=== PATIENT | female | born 1990 | race Two or more races ===

== ENCOUNTER 2021-10-22 04:25 | Emergency (ER) | payer SELFPAY ==
[~2021-10-22] VITALS: Ht 152.4 cm; Wt 29.6 kg
[2021-10-22] MEDS ORDERED: ACETAMINOPHEN 500 MG TABLET PO ONE (06:30)
--- NOTE | 2021-10-22 07:29 | PHYS DOC ---
Adult General Chief Complaint Chief Complaint: VAGINAL BLEEDING [facility] HPI The patient is a 31-year-old female, G5, P2, A2 at about 8 weeks estimated gestational age by last menstrual period. She presents for evaluation of vaginal spotting since yesterday in the setting of low midline abdominal and low back discomfort which has been present for a few weeks. Discomfort is not worse than usual today; only new symptom is the vaginal spotting. Patient has only used 1 pad since onset of bleeding. She denies fevers, nausea or vomiting, upper respiratory congestion/rhinorrhea, cough, sore throat, shortness of breath or chest pain of any kind, flank pain, dysuria, hematuria, polyuria or oliguria, unusual vaginal discharge, changes in bowel habits. Vital signs are appropriate here and the patient is in no acute distress. Fluent telephonic Cymraes interpretation used to collect history and complete examination. Review of Systems Review of Systems A 12 point review of systems was completed and was negative except where noted in HPI above. Current Medications Current Medications Current Medications Medications (Trade) Dose Ordered Sig/Arturo Start Time Stop Time Status Last Admin Dose Admin Acetaminophen (Tylenol) 1,000 mg 1X ONCE 10/22/21 06:30 10/22/21 07:20 DC 10/22/21 07:27 1,000 MG Allergies Allergies Allergies Coded Allergies Type Severity Reaction Last Updated Verified No Known Drug Allergies 10/22/21 No Physical Exam Physical Exam Younger female appearing nontoxic and in no acute distress. Head is normocephalic and atraumatic. Neck is supple and nontender. Oropharynx is moist. Lungs are clear to auscultation at all stations. There is a normal S1 and S2 without rubs or gallops and capillary refill is appropriate, less than 2 seconds globally. Abdomen is soft, nontender and nondistended. Skin is warm and dry without cyanosis, clubbing or edema. Psychiatrically, the patient demonstrates appropriate mood and affect and is alert. Current Patient Data Vital Signs Vital Signs Date Time Temp Pulse Resp B/P (MAP) Pulse Ox O2 Delivery O2 Flow Rate FiO2 10/22/21 07:20 78 22 107/56 (73) 97 Room Air 10/22/21 07:08 98.9 98.9 Lab Values Laboratory Tests Test 10/22/21 07:12 10/22/21 07:18 Urine Collection Type Unknown Urine Color Anabella Urine Clarity Clear Urine pH 6.0 (<5.0-8.0) Urine Specific [place] 1.020 (1.000-1.030) Urine Protein Negative mg/dL (NEG-TRACE) Urine Glucose (UA) Negative mg/dL (NEG) Urine Ketones (Stick) Negative mg/dL (NEG) Urine Blood Large (NEG) Urine Nitrite Negative (NEG) Urine Bilirubin Small (NEG) Urine Urobilinogen Dipstick 0.2 mg/dL (0.2 mg/dL) Urine Leukocyte Esterase Small (NEG) Urine RBC >40 /HPF (0-2) Urine WBC 1-4 /HPF (0-4) Urine Squamous Epithelial Cells Few /LPF Urine Bacteria Few /HPF (0-FEW) Urine Mucus Slight /LPF White Blood Count 11.7 x10^3/uL (4.0-11.0) H Red Blood Count 4.40 x10^6/uL (3.50-5.40) Hemoglobin 13.1 g/dL (12.0-15.5) Hematocrit 38.5 % (36.0-47.0) Mean Corpuscular Volume 88 fL (79-100) Mean Corpuscular Hemoglobin 30 pg (25-35) Mean Corpuscular Hemoglobin Concent 34 g/dL (31-37) Red Cell Distribution Width 13.4 % (11.5-14.5) Platelet Count 286 x10^3/uL (140-400) Neutrophils (%) (Auto) 72 % (31-73) Lymphocytes (%) (Auto) 21 % (24-48) L Monocytes (%) (Auto) 6 % (0-9) Eosinophils (%) (Auto) 1 % (0-3) Basophils (%) (Auto) 1 % (0-3) Neutrophils # (Auto) 8.4 x10^3/uL (1.8-7.7) H Lymphocytes # (Auto) 2.4 x10^3/uL (1.0-4.8) Monocytes # (Auto) 0.7 x10^3/uL (0.0-1.1) Eosinophils # (Auto) 0.1 x10^3/uL (0.0-0.7) Basophils # (Auto) 0.1 x10^3/uL (0.0-0.2) Maternal Serum HCG Beta Subunit 5384 mIU/mL (0-5) H Laboratory Tests 10/22/21 07:18 EKG EKG [] Radiology/Procedures Radiology/Procedures OB ultrasound less than 14 weeks to include transabdominal and transvaginal imaging 10/22/2021 CLINICAL HISTORY: First trimester with vaginal bleeding. TECHNIQUE: Using the distended urinary bladder as a sonographic window, a real- time ultrasound examination of the pelvis was performed. Additionally in an attempt to better evaluate the uterus and adnexa, a transvaginal ultrasound study was performed. Multiple images were obtained. 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 An oval-shaped fluid collection is seen within the endometrial canal within the right aspect of the uterine body/fundus which resembles a gestational sac. No yolk sac or embryonic pole is seen to confirm a living IUP. The mean sac diameter is 1.4 cm. This corresponds to an estimated gestational age by ultrasound of 6 weeks 2 days plus or minus a standard deviation of 7 days. The uterus is otherwise within normal limits. Both ovaries are within normal limits in size and echogenicity. The right ovary measures 3.5 x 2.2 x 2.1 cm in size. The left ovary measures 2.4 x 1.4 x 1.3 cm in size. No adnexal mass is seen. No free fluid is noted. IMPRESSION: A fluid collection which resembles a gestational sac is seen within the right aspect of the endometrial canal of the body/fundus of the uterus. No yolk sac or embryonic pole is seen to confirm a living IUP at this time. Cor relation with the patient's serial beta hCG levels is recommended. A follow-up pelvic ultrasound could be useful if clinically warranted. Electronically signed by: William Zacarias MD (10/22/2021 9:13 AM) [id number] DICTATED and SIGNED BY: WILLIAM ZACARIAS MD DATE: 10/22/21 [id number] 0 Course & Med Decision Making Course & Med Decision Making Well-appearing 31-year-old female with reassuring vital signs presenting for scant vaginal bleeding of early . No ultrasound confirmatory of intrauterine yet. Will check studies as noted including a formal obstetric ultrasound and will then reevaluate. Will give some Tylenol for discomfort. 0950: Resting comfortably in no acute distress on serial reassessments. Vital signs remained appropriate here. Labs as noted. Ultrasound results as above. Patient will need at least a repeat quantitative hCG in 48 hours. This has been discussed with her, as have return precautions for significant worsening of bleeding, significant worsening of pain, shortness of breath, lightheadedness or other new concerns. All questions are answered. Dragon Disclaimer Dragon Disclaimer This electronic medical record was generated, in whole or in part, using a voice recognition dictation system. Departure Departure Impression: Primary Impression: Vaginal bleeding affecting early Disposition: HOME / SELF CARE / HOMELESS Condition: STABLE Referrals: GREGORIA FAROOQ MD Patient Instructions: Vaginal Bleeding During , First Trimester Additional Instructions: Follow-up with your cardiac specialist in the office in 48 hours (2 days) for a repeat quantitative hormone test and for reevaluation. Drink plenty of fluids and get plenty of rest. You may take Tylenol as needed for discomfort. Return to the emergency department right away for worsening bleeding (usually defined as bleeding involving 2 or more pads an hour for 3 or more hours in a row), significant worsening of pain, shortness of breath, lightheadedness or for any other new symptoms of concern. WILLIAM NELSON MD Oct 22, 2021 07:29
[2021-10-22 07:37] LABS: BASO # 0.1 x10^3/uL (0.0-0.2); BASO % 1 % (0-3); EOS # 0.1 x10^3/uL (0.0-0.7); EOS % 1 % (0-3); HEMATOCRIT 38.5 % (36.0-47.0); HEMOGLOBIN 13.1 g/dL (12.0-15.5); LYMPH # 2.4 x10^3/uL (1.0-4.8); LYMPH % 21 % (24-48); MEAN CORPUSCULAR HEMOGLOBIN 30 pg (25-35); MEAN CORPUSCULAR HGB CONC 34 g/dL (31-37); MEAN CORPUSCULAR VOLUME 88 fL (79-100); MONO # 0.7 x10^3/uL (0.0-1.1); MONO % 6 % (0-9); NEUT # 8.4 x10^3/uL (1.8-7.7); NEUT % 72 % (31-73); PLATELET COUNT 286 x10^3/uL (140-400); RED CELL DISTRIBUTION WIDTH 13.4 % (11.5-14.5); WHITE BLOOD COUNT 11.7 x10^3/uL (4.0-11.0)
[2021-10-22 07:38] LABS: BILIRUBIN,URINE SMALL (NEG); CLARITY,URINE CLEAR; COLOR,URINE AMBER; NITRITE,URINE NEGATIVE (NEG); PROTEIN,URINE NEGATIVE (NEG-TRACE); UROBILINOGEN,URINE 0.2 mg/dL (0.2 mg/dL)
[2021-10-22 07:56] LABS: BACTERIA,URINE FEW /HPF (0-FEW); RBC,URINE >40 /HPF (0-2)
--- NOTE | 2021-10-22 09:15 | RAD ---
OB ultrasound less than 14 weeks to include transabdominal and transvaginal imaging 10/22/2021 CLINICAL HISTORY: First trimester with vaginal bleeding. TECHNIQUE: Using the distended urinary bladder as a sonographic window, a real-time ultrasound examin ation of the pelvis was performed. Additionally in an attempt to better evaluate the uterus and adnex a, a transvaginal ultrasound study was performed. Multiple images were obtained. 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 An oval-shaped fluid collection is seen within the endometrial ca nal within the right aspect of the uterine body/fundus which resembles a gestational sac. No yolk sac or embryonic pole is seen to confirm a living IUP. The mean sac diameter is 1.4 cm. This corresponds to an estimated gestational age by ultrasound of 6 weeks 2 days plus or minus a standard deviation o f 7 days. The uterus is otherwise within normal limits. Both ovaries are within normal limits in size and echogenicity. The right ovary measures 3.5 x 2.2 x 2.1 cm in size. The left ovary measures 2.4 x 1.4 x 1.3 cm in size. No adnexal mass is seen. No free fluid is noted. IMPRESSION: A fluid collection which resembles a gestational sac is seen within the right aspect of t he endometrial canal of the body/fundus of the uterus. No yolk sac or embryonic pole is seen to confi rm a living IUP at this time. Correlation with the patient's serial beta hCG levels is recommended. A follow-up pelvic ultrasound could be useful if clinically warranted. Electronically signed by: William Person MD (10/22/2021 9:13 AM) [id number]
[2021-10-22 10:20] VITALS: BP 127/58
== END 2021-10-22 10:32 | disposition home or self-care (01) ==
LOC: ER 04:25
DX: O46.91 Antepartum hemorrhage, unspecified, first trimester (principal); Z3A.08 8 weeks gestation of pregnancy
CPT/HCPCS: 36415; 76801; 76817; 81001; 84702; 85025; 86850; 86900; 86901; 87086; 99285-25